=== PATIENT | female | born 1950 | race Caucasian/White ===

== ENCOUNTER 2021-01-27 13:14 | Emergency (ER) | payer OTHER, SELFPAY ==
--- NOTE | ~2021-01-27 | XR_ITS ---
EXAMINATION: XR chest 2V EXAM DATE: 01/27/2021 13:37 INDICATION: Weakness, frequent falls. TECHNIQUE: Frontal and lateral projections of the chest obtained and reviewed. There is no prior levi dy for comparison. FINDINGS: The lungs are clear. There are no pleural effusions. The cardiomediastinal silhouette is within normal limits. There is no pneumothorax suspected. The bones and soft tissues are unremarkab le. There are cholecystectomy clips. IMPRESSION: No acute cardiopulmonary findings. Reviewed, dictated and finalized at location B.
--- NOTE | ~2021-01-27 | CT_ITS ---
EXAMINATION: CT brain wo con INDICATION: Headache COMPARISON: 01/03/2012 TECHNIQUE: Standard unenhanced head CT. The dose-length product (DLP) was 681.00 mGy-cm. The mA was a djusted according to patient size. Iterative reconstruction technique was employed. FINDINGS: There is no acute intraparenchymal hemorrhage. No evidence of mass lesion. No evidence of a cute infarction. There is mild periventricular and subcortical hypodensity probably related to small vessel ischemic disease. There is mild prominence of the sulci and ventricles related to cerebral atr ophy. Intracranial calcified cerebral atherosclerosis is noted. There are no extra-axial collections. There is no mass effect or midline shift. The orbits and soft tissues are unremarkable. The visuali zed sinuses and mastoid air cells are well aerated. IMPRESSION: 1. No acute intracranial abnormality. 2. Age related findings. Reviewed, dictated and finalized at location A.
--- NOTE | ~2021-01-27 | US_ITS ---
EXAMINATION: US venous doppler [facility] DATE: 01/27/2021 15:53 INDICATION: Lower limb swelling TECHNIQUE: Grayscale ultrasound images without and with compression and Doppler ultrasound images of the bilateral lower extremity veins were obtained. COMPARISON: None. FINDINGS: The visualized portions of right common femoral vein, profunda (deep) femoral vein, femoral vein, pop liteal vein, posterior tibial veins, peroneal veins, gastrocnemius vein and greater saphenous vein ou tflow are patent. The visualized portions of left common femoral vein, profunda femoral vein, femoral vein, popliteal v ein, posterior tibial veins, peroneal veins, gastrocnemius vein and greater saphenous vein outflow ar e patent. IMPRESSION: 1. No deep venous thrombosis in either lower limb. Reviewed, dictated and finalized at location A.
--- NOTE | 2021-01-27 13:18 | ECG_ITS ---
Measurements Intervals [place] Rate: 89 P: 21 VA: 136 QRS: 10 QRSD: 90 T: 32 QT: 381 QTc: 464 Interpretive Statements SINUS RHYTHM LOW QRS VOLTAGE IN PRECORDIAL LEADS BORDERLINE ST-T WAVE ABNORMALITY- ANT/HIGH LAT LEADS BASELINE ARTIFACT- I, II, AVR BORDERLINE ECG Electronically Signed On 01-27-2021 14:34:53 CDT by David Aguiar D.O.
[2021-01-27 13:19] VITALS: BP 123/65; PULSE 92; RESP 16; TEMP 36.6; O2SAT 98
[2021-01-27 13:34] LABS: Basophils Percent Auto 0.4 % (0.2-1.2); Eosinophils Absolute Auto 0.1 K/mm3 (0-0.3); Eosinophils Percent Auto 2.2 % (0-4.4); Hematocrit 30.8 % (37.0-47.0); Hemoglobin 9.4 g/dL (12.0-15.0); Immature Granulocyte Absolute 0.01 K/mm3 (0.00-0.031); Immature Granulocyte Percent A 0.2 % (0-0.5); Lymphocytes Absolute Auto 1.45 K/mm3 (0.9-3.2); Lymphocytes Percent Auto 31.5 % (18.3-44.2); Mean Corpuscular HGB Conc 30.5 g/dl (32-36); Mean Corpuscular Hemoglobin 23.2 pg (26-34); Mean Platelet Volume 10.6 fl (7.4-10.4); Monocytes Absolute Auto 0.4 K/mm3 (0.1-0.6); Monocytes Percent Auto 8.9 % (2.6-8.5); Neutrophils Absolute Auto 2.6 K/mm3 (1.3-6.7); Neutrophils Percent Auto 56.8 % (45.5-73.1); Platelet Count Result 309 k/mm3 (150-375); Red Blood Count 4.05 M/mm3 (4.2-5.4); White Blood Count 4.6 K/mm3 (4.5-10.0)
[2021-01-27 13:44] LABS: Alanine Aminotransferase 12 U/L (4-35); Albumin Level 3.4 g/dL (3.5-5.1); Alkaline Phosphatase 97 U/L (38-126); Anion Gap 8 mmol/L (8-16); Aspartate Amino Transferase 24 U/L (14-36); Bilirubin,Total 0.3 mg/dL (0.2-1.3); Blood Urea Nitrogen 14 mg/dL (7-17); Calcium 8.4 mg/dL (8.4-10.2); Carbon Dioxide 23 mmol/L (22-30); Chloride 107 mmol/L (98-107); Estimated CRCL calculation 42 ml/min; Estimated Glomerular Filt Rate 49; Glucose 100 mg/dL (65-105); Potassium 3.3 mmol/L (3.4-5.0); Sodium 138 mmol/L (137-145)
[2021-01-27 14:41] VITALS: BP 127/74; PULSE 83
[2021-01-27 14:42] VITALS: BP 103/86; BP 94/71; PULSE 88; PULSE 89
--- NOTE | 2021-01-27 14:45 | PC.NURSE ---
Pt unable to give urine sample at this time.
[2021-01-27 14:50] LABS: INR 1.1; Partial Thromboplastin Time 28.7 SECONDS (22.3-36.8); Prothrombin Time 14.4 Seconds (11.1-14.7)
--- NOTE | 2021-01-27 14:50 | ED.GENADULT ---
HPI - General Adult General Chief complaint: Weakness Stated complaint: weakness, med confusion (per caregiver) Time Seen by Provider: 01/27/21 13:42 Source: patient Mode of arrival: ambulatory Limitations: no limitations History of Present Illness HPI narrative: This is a 70 year old female who presents for evaluation of frequent falls, weakness and confusion with her medications. Patient's sales technician home theater is at bedside providing history as well as patient. She states patient's cousin has reported that patient has been fall frequently over the past month. They states she seems to be confused about her medications. They also reports confusion intermittently. Today patient fell while walking . Her aide states patient seems to stumble over her feet. Patient reports she did hit the back of her head. She does not take anticoagulation. She denies nausea, vomiting, abdominal pain, chest pain or sob. She has noticed that her feet are swollen and that is new. Related Data Allergies Allergy/AdvReac Type Severity Reaction Status Date / Time sulfamethoxazole Allergy Intermediate Hives / Verified 02/24/17 06:25 Red Face trimethoprim Allergy Intermediate Hives / Verified 02/24/17 06:25 Red Face Penicillins Allergy Unknown Verified 02/24/17 06:25 Review of Systems Review of Systems: All systems reviewed & are unremarkable except as noted in HPI and below PMFSH Past Medical History Medical History (Updated 01/27/21 @ 18:25 by Elizabeth Onofre MD) Anxiety Hypothyroidism Surgical History Surgical History (Updated 01/27/21 @ 14:56 by Elizabeth Onofre MD) H/O: hysterectomy History of cholecystectomy Exam Const: General: no acute distress and alert Orientation/consciousness: patient oriented x3 Eyes: EOM: EOMs intact bilaterally Chest: Chest palpation & inspection: normal inspection of the chest Resp: Effort & Inspection: normal respiratory effort and no retractions Auscultation: clear to auscultation bilaterally Cardio: Rate: regular rate Rhythm: regular rhythm Heart sounds: no murmurs GI: GI Palp: Yes Soft to palpation, No Tenderness to palpation present (GI) and No Guarding due to palpation present (GI) Auscultation: normal bowel sounds Skin: General skin exam: normal color Rashes: no rashes Neuro: General: patient oriented x3, moves all extremities and CN's II-XI intact bilaterally Extrem: General: edema Psych: Mental Status: mental status grossly normal Affect: normal affect Course Reevaluation(s) Reevaluation #1: Patient was able to ambulate per nursing staff with out difficulty. She denies dizziness. She was given IVF, macrobid . She will follow up with PCP Date: 01/27/21 Time: 18:21 Vital Signs Vital signs: Vital Signs Temperature 97.8 F 01/27/21 13:19 Pulse Rate 92 01/27/21 13:19 Respiratory Rate 16 01/27/21 13:19 Blood Pressure 123/65 01/27/21 13:19 Pulse Oximetry 98 01/27/21 13:19 Temperature 97.8 F 01/27/21 13:19 Pulse Rate 89 01/27/21 14:42 Respiratory Rate 16 01/27/21 13:19 Blood Pressure 103/86 01/27/21 14:42 Pulse Oximetry 98 01/27/21 13:19 Medical Decision Making Vital Signs Vital Signs: Vital Signs Temperature 97.8 F 01/27/21 13:19 Pulse Rate 92 01/27/21 13:19 Respiratory Rate 16 01/27/21 13:19 Blood Pressure 123/65 01/27/21 13:19 Pulse Oximetry 98 01/27/21 13:19 Temperature 97.8 F 01/27/21 13:19 Pulse Rate 89 01/27/21 14:42 Respiratory Rate 16 01/27/21 13:19 Blood Pressure 103/86 01/27/21 14:42 Pulse Oximetry 98 01/27/21 13:19 Lab Data Lab results reviewed: Yes I reviewed the patient's lab results. Result diagrams: 01/27/21 13:26 01/27/21 13:26 Labs: Lab Results 01/27/21 01/27/21 01/27/21 Range/Units 13:26 13:26 13:26 WBC 4.6 (4.5-10.0) K/mm3 RBC 4.05 L (4.2-5.4) M/mm3 Hgb 9.4 L (12.0-15.0) g/dL Hct 30.8 L (37.0-47
[2021-01-27 14:59] LABS: NT Pro B Type Natriuretic Pept 134 pg/mL (5-100); Troponin I < 0.012 ng/mL (0.000-0.034)
[2021-01-27 16:08] LABS: Add Urine Microscopic? YES; Appearance Urine Clear (Clear); Bacteria Urine Trace /hpf; Bilirubin Urine Negative (Negative); Blood Urine Negative (Negative); Color Urine Yellow (Yellow); Glucose Urine UA Negative (Negative); Ketones Urine Negative (Negative); Leukocyte Esterase Ur 1+ LEU/UL (Negative); Mucus Urine Rare /lpf; Nitrate Urine Negative (Negative); Protein Urine Negative (Negative); Squamous Epithelial Cell Urine Few /hpf (Few); Urobilinogen Urine Negative mg/dL (<2.0)
[2021-01-27] MEDS: POTASSIUM CHLORIDE 20 MEQ TABLET 40 MEQ PO (16:27)
[2021-01-27] MEDS: NITROFURANTOIN MONOHYD MACROCR 100 MG CAP PO (17:02)
[2021-01-27] MEDS: SODIUM CHLORIDE 0.9% IV 1,000 ML 999 ML IV CONT (17:02)
--- NOTE | 2021-01-27 19:00 | PC.NURSE ---
Pt was discharged by another RN. Pt left without getting her IV out. Charged nurse informed of this.
== END 2021-01-27 19:00 | disposition home or self-care (01) ==
PROVIDERS: Emergency Medicine; Emergency Provider General Practice; PCP Physician Assistant
DX: N39.0 Urinary tract infection, site not specified (principal); E86.0 Dehydration; R29.6 Repeated falls; R94.31 Abnormal electrocardiogram [ECG] [EKG]
CPT/HCPCS: 36415; 70450; 71046; 80053; 81001; 83880; 84484; 85025; 85610; 85730; 87086; 93005; 93970; 96360; 99284; A9270; J7030

== ENCOUNTER 2024-04-18 11:20 | Emergency (ER) | payer OTHER, SELFPAY ==
--- NOTE | ~2024-04-18 | XR_ITS ---
EXAMINATION: XR chest 2V 04/18/2024 12:01 INDICATION: Weakness, cough and fever PROCEDURE: 2 view chest COMPARISON: Comparison to multiple prior studies sequentially, with oldest reviewed study dated 06/17. FINDINGS: The lungs are clear. The cardiomediastinal silhouette is within normal limits. There are no pleural effusions. There is no pneumothorax suspected. IMPRESSION: 1: NO ACUTE CARDIOPULMONARY DISEASE. Reviewed, dictated and finalized at location B.
[2024-04-18 11:17] VITALS: BP 135/84; RESP 80; TEMP 36.4; O2SAT 98
--- NOTE | 2024-04-18 11:24 | ECG_ITS ---
Test Date: 2024-04-18 11:27:18 Measurements Intervals [place] Rate: 78 P: 26 MO: 163 QRS: 4 QRSD: 86 T: 31 QT: 397 QTc: 454 Interpretive Statements SINUS RHYTHM BORDERLINE R WAVE PROGRESSION, ANTERIOR LEADS BORDERLINE ST-T WAVE ABNORMALITY- ANT/INF LEADS BASELINE ARTIFACT- I, II, III, AVR, AVL, AVF, V1-V5 BORDERLINE ECG No previous ECG available for comparison Electronically Signed On 04-18-2024 11:44:12 CDT by David Aguiar D.O.
[2024-04-18 11:49] LABS: Basophils Percent Auto 0.4 % (0.2-1.2); Eosinophils Absolute Auto 0.2 K/mm3 (0-0.3); Eosinophils Percent Auto 3.2 % (0-4.4); Hematocrit 33.4 % (37.0-47.0); Hemoglobin 9.7 g/dL (12.0-15.0); Immature Granulocyte Absolute 0.01 K/mm3 (0.00-0.031); Immature Granulocyte Percent A 0.2 % (0-0.5); Lymphocytes Absolute Auto 1.75 K/mm3 (0.9-3.2); Mean Corpuscular Hemoglobin 21.7 pg (26-34); Mean Corpuscular Volume 74.7 fl (80-100); Mean Platelet Volume 10.2 fl (7.4-10.4); Monocytes Absolute Auto 0.4 K/mm3 (0.1-0.6); Monocytes Percent Auto 7.6 % (2.6-8.5); Neutrophils Absolute Auto 3.3 K/mm3 (1.3-6.7); Neutrophils Percent Auto 57.6 % (45.5-73.1); Platelet Count Result 355 k/mm3 (150-375); Red Blood Count 4.47 M/mm3 (4.2-5.4); Red Cell Distribution Width 17.8 % (11.5-14.5); White Blood Count 5.7 K/mm3 (4.5-10.0)
[2024-04-18 11:57] LABS: Alanine Aminotransferase 10 U/L (6-35); Albumin Level 3.9 g/dL (3.5-5.1); Alkaline Phosphatase 93 U/L (38-126); Anion Gap 9 mmol/L (4-12); Aspartate Amino Transferase 23 U/L (14-36); Bilirubin,Total 0.2 mg/dL (0.2-1.3); Blood Urea Nitrogen 16 mg/dL (7-17); Calcium 8.3 mg/dL (8.4-10.2); Carbon Dioxide 28 mmol/L (22-30); Chloride 100 mmol/L (98-107); Estimated CRCL calculation 45 ml/min; Estimated Glomerular Filt Rate 54; Glucose 91 mg/dL (65-110); Potassium 3.7 mmol/L (3.4-5.0); Sodium 137 mmol/L (137-145)
[2024-04-18 13:00] VITALS: BP 120/72; PULSE 81; RESP 19; O2SAT 97
--- NOTE | 2024-04-18 13:57 | ED.WEAKNESS ---
HPI - Weakness General Chief complaint: Weakness Stated complaint: fatigue x 3 days Time Seen by Provider: 04/18/24 12:49 History of Present Illness HPI Narrative: 73 Female presenting with fatigue. Patient states that she has been increasingly tired and generally weak over the last few days. States that she has been sleeping a lot. Today she had suprapubic abdominal pain that resolved after she urinated. She denies dysuria or hematuria. She denies abdominal pain right now. No nausea or vomiting. No diarrhea or constipation. No fevers, chest pain, shortness of breath. Does complain of a dry cough. Related Data Allergies Allergy/AdvReac Type Severity Reaction Status Date / Time sulfamethoxazole Allergy Intermediate Hives / Verified 02/24/17 06:25 Red Face trimethoprim Allergy Intermediate Hives / Verified 02/24/17 06:25 Red Face Penicillins Allergy Unknown Verified 02/24/17 06:25 Review of Systems Review of Systems: All systems reviewed & are unremarkable except as noted in HPI and below PMFSH Past Medical History Medical History Anxiety Hypothyroidism Surgical History Surgical History H/O: hysterectomy History of cholecystectomy Exam Narrative: GENERAL: Nontoxic, no acute distress, pleasant cooperative HEAD: Normocephalic, atraumatic. EYES: PERRLA and EOMI. ENT: Mucous membranes moist. NECK: Supple. CHEST: Clear to auscultation. No respiratory distress. HEART: Regular rate and rhythm ABDOMEN: Soft, nontender, nondistended EXTREMITIES: Normal range of motion SKIN: Warm, dry, no rash. NEURO: Alert and oriented x3. PSYCH: Normal mood and affect. Course Vital Signs Vital signs: Vital Signs Temperature 97.6 F 04/18/24 11:17 Respiratory Rate 80 H 04/18/24 11:17 Blood Pressure 135/84 04/18/24 11:17 Pulse Oximetry 98 04/18/24 11:17 Oxygen Delivery Room Air 04/18/24 11:17 Temperature 97.6 F 04/18/24 11:17 Pulse Rate 86 04/18/24 16:00 Respiratory Rate 19 04/18/24 16:00 Blood Pressure 118/70 04/18/24 16:00 Pulse Oximetry 100 04/18/24 16:00 Oxygen Delivery Room Air 04/18/24 11:17 MDM - Weakness MDM Narrative Medical decision making narrative: 73-year-old female presenting with fatigue and generalized weakness. Vitals stable. Exam remarkable for the above. EKG per my interpretation shows normal sinus rhythm, nonspecific ST changes, no ST elevations or depressions. Blood work without acute abnormalities. Chronic anemia is unchanged. Patient is negative for COVID, influenza. UA is not infected. Chest x-ray without acute abnormalities. Discussed the reassuring workup with the patient. Feel she is safe for outpatient management. She is comfortable with this plan. Advised close PCP follow-up. Appropriate return precautions given. Discharged in stable condition. Differential Diagnosis Differential diagnosis: Likely anemia, hypoglycemia, dehydration and other (UTI, JAYME, generalized fatigue) Medical Records Attestation: I reviewed the patient's medical records. Lab Data Attestation: I reviewed the patient's lab results. 04/18/24 11:32 04/18/24 11:32 Labs: Lab Results 04/18/24 04/18/24 04/18/24 Range/Units 11:30 11:32 14:06 WBC 5.7 (4.5-10.0) K/mm3 RBC 4.47 (4.2-5.4) M/mm3 Hgb 9.7 L (12.0-15.0) g/dL Hct 33.4 L (37.0-47.0) % MCV 74.7 L (80-100) fl MCH 21.7 L (26-34) pg MCHC 29.0 L (32-36) g/dl RDW 17.8 H (11.5-14.5) % Plt Count 355 (150-375) k/mm3 MPV 10.2 (7.4-10.4) fl Immature Gran % (Auto) 0.2 (0-0.5) % Neut % (Auto) 57.6 (45.5-73.1) % Lymph % (Auto) 31.0 (18.3-44.2) % [place] % (Auto) 7.6 (2.6-8.5) % Eos % (Auto) 3.2 (0-4.4) % Baso % (Auto) 0.4 (0.2-1.2) % Lymph # (Auto) 1.75 (0.9-3.2) K/mm3 [place] # (Auto)
[2024-04-18] MEDS: SODIUM CHLORIDE 0.9% IV 1,000 ML 999 ML IV CONT (14:05)
[2024-04-18 14:20] LABS: Lipase 70 U/L (23-300)
[2024-04-18 14:33] LABS: NT Pro B Type Natriuretic Pept 41 pg/mL (19.9-100); Troponin I < 0.012 ng/mL (0.000-0.034)
[2024-04-18 14:45] VITALS: BP 122/74; PULSE 82; RESP 16; O2SAT 99
[2024-04-18 14:51] LABS: Influenza A QL RT-PCR Negative (Negative); Influenza B QL RT-PCR Negative (Negative); RSV RNA, RT-PCR Negative (Negative); SARS-CoV-2 RNA PCR Negative (Negative)
[2024-04-18 15:03] LABS: Prothrombin Time 13.8 Seconds (11.1-14.7)
[2024-04-18 15:13] LABS: Troponin I < 0.012 ng/mL (0.000-0.034)
[2024-04-18 15:33] LABS: Appearance Urine Clear (Clear); Bacteria Urine None Seen /hpf; Bilirubin Urine Negative (Negative); Blood Urine Negative (Negative); Color Urine Yellow (Yellow); Glucose Urine UA Negative (Negative); Ketones Urine Negative (Negative); Leukocyte Esterase Ur Trace LEU/UL (Negative); Need Manual Microscopic Reviewed; Nitrate Urine Negative (Negative); Non Pathogenic Casts 0-2; Protein Urine Negative (Negative); RBC Urine 0-2 /hpf (0-2); Specific Grav Ur 1.005 (1.001-1.035); Squamous Epithelial Cell Urine None Seen /hpf (Few); Urobilinogen Urine 0.2 mg/dL (<2.0); WBC Urine 0-5 /hpf (0-3)
[2024-04-18 15:34] LABS: Add Urine Microscopic? YES
[2024-04-18 16:00] VITALS: BP 118/70; PULSE 86; RESP 19; O2SAT 100
== END 2024-04-18 16:30 | disposition home or self-care (01) ==
PROVIDERS: Student in an Organized Health Care Education/Training Program; Emergency Provider Emergency Medicine; PCP Physician Assistant
DX: R53.83 Other fatigue (principal); D64.9 Anemia, unspecified; Z20.822 Contact with and (suspected) exposure to COVID-19; F41.9 Anxiety disorder, unspecified; E03.9 Hypothyroidism, unspecified
CPT/HCPCS: 36415; 71046; 80053; 81001; 83690; 83880; 84484; 85025; 85610; 85730; 87637; 93005; 96360; 99284; J7030